=== PATIENT | male | born 1965 | race Caucasian/White ===

== ENCOUNTER 2023-11-05 07:30 | Outpatient (CLI) | payer OTHER, SELFPAY | END 2023-11-05 07:31 | disposition home or self-care (01) | PROVIDERS: PCP Internal Medicine; Visit Provider Internal Medicine | DX: Z12.5 Encounter for screening for malignant neoplasm of prostate (principal); Z13.6 Encounter for screening for cardiovascular disorders | CPT/HCPCS: 80061; G0103 ==

== ENCOUNTER 2024-04-26 08:15 | Outpatient (RCR) | payer MEDICAID, SELFPAY ==
--- NOTE | 2024-04-19 11:08 | OT.OPOE ---
OT Outpatient Ortho Eval OT Outpatient Ortho Eval* Start: 04/19/24 08:16 Freq: Status: Active Protocol: Document 04/19/24 08:16 ROGELIO (Rec: 04/19/24 10:55 URSULAAngeline [id number]) E-signed By Zohra Marcano, OTR/L, CLT OT OP Ortho Eval Details Complexity Complexity Low Insurance Information Insurance Information Medicaid,UCARE Outpatient History/Precautions Current Condition/Medical Diagnosis Referring Provider Dr. Zoran Anthony Medical Diagnoses Ulnar nerve entrapment ( bilateral) G56.20 - Lesion of ulnar nerve , unspecified upper limb (both the L and R UE) Treatment Diagnosis Paresthesia of skin R20.2 Pain in the R hand M79.641 Pain in the L hand M79.642 Weakness M62.81 (hand hook up strength bilaterally) Date of Onset Chronic, >1 year Other Conditions Ulnar nerve entrapment G56.20 - Lesion of ulnar nerve , unspecified upper limb (ICD- 10) CAD (coronary artery disease) I25.10 - Atherosclerotic heart disease of [place] coronary artery without angina pectoris (ICD-10) Numbness in both hands Medical/Functional History Medical History Reviewed Yes Prior Level of Function/Mobility Medications: aspirin (Adult Low Dose Aspirin) 81 mg PO QDAY atorvastatin 80 mg PO DAILY lisinopril 10 mg PO DAILY Social History Employment Status Retired Critical Job Demands Pull,Lift,Overhead Reach 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 Symptoms are present throughout the day and will wake him up in the middle of the night. He takes ibuprofen when it is really bad but not daily on a schedule, reports some relief from this. His symptoms are very much compatible with ulnar nerve entrapment syndrome bilaterally. No other complaints or concerns are noted. Patient saw his PCP for these symptoms on 03/08/24 and it was recommended that he try to sleep with his arm straight. In addition, he was given a course of prednisone 20 mg PO BID 10 tabs 0RF G56.20 - Lesion of ulnar nerve , unspecified upper limb. Patient states he had 2 days of relief from this but then after finishing the medication he didn't notice any difference. Pain Assessment Pain Pain Yes Pain Comments 3/10 tingling and numbness in the little finger and ring finger bilaterally R hand is worse (R hand dominant) Range of Motion and Strength Shoulder Range of Motion and Strength Shoulder Range of Motion and Strength Bilaterally the ROM of WNL with strength 5/5 Elbow/Forearm Range of Motion and Strength Elbow/Forearm Range of Motion and Bilaterally the ROM of WNL Strength with strength 5/5 Wrist Range of Motion and Strength Wrist Range of Motion and Strength Bilaterally the ROM of WNL with strength 5/5 Hand Pinch/Benzol Still Operator Strength Hand Pinch/Benzol Still Operator Strength Hand Pinch/Benzol Still Operator Strength Left Hand,Right Hand Left Hand Benzol Still Operator Strength Position 1 in Elbow 110 Flexion (lbs) Benzol Still Operator Strength Position 2 in Elbow 115 Extension (lbs) Lateral Pinch Strength (lbs) 30 Three Point Pinch (lbs) 21 Tip Pinch Strength (lbs) 16 Right Hand Benzol Still Operator Strength Position 1 in Elbow 103 Flexion (lbs) Benzol Still Operator Strength Position 2 in Elbow 105 Extension (lbs) Lateral Pinch Strength (lbs) 30 Three Point Pinch (lbs) 21 Tip Pinch Strength (lbs) 16 OT Problems Problems Problems Decreased Strength,Pain, Sensory Sensitivity,Lifting, Gripping,Pinching Other Problems Sleeping Patient Potential Good Assessment Assessment Assessment This is a very pleasant, R hand dominant 58-year-old retired male patient who presents to the clinic with a chief complaint of paresthesia on the ulnar side of both hands, involving the little and ring fingers as well as reports of worsening hook up strength in bilateral hands. Pain level is reported at a 3/ 10 consistently but more if he bumps his elbow or rests the elbow for long durations of time. Symptoms are worse if his elbow is bent >60 degrees and he has been trying to keep his arms straight/in extended positions as much as possible . Benzol Still Operator/pinch strengths are within the standard norms for his gender/age but this is a very active male who notices a difference in his hand strength when comparing against his personal baseline. Occupational Therapy Treatment Plan - OP Potential Rehabilitation Potential Good Barriers Barriers to goal attainment Patient's symptoms began >1 year ago (Chronic) with longstanding symptoms that irritate patient during the day and night, patient may not achieve a full recovery with conservative measures. Set Goals Goals Set with Patient Yes Goals Goals 1. Through activity participation in skilled therapy sessions, and consistency in performing a customized HEP, patient will improve capacity of tendons and muscles to manage load in order to have less pain with ADLs, work, leisure activities and IADLs. 2. Through use of a soft elbow brace and nighttime positioning changes for the dominant R UE, patient will report sleeping >3 hour durations for improved sleep quality. 3. Patient will report a 50% decrease in paresthesia of bilateral hands during daytime hours. Target Date 8 weeks Treatment Plan Treatment Plan Evaluation,Edema Control, Iontophoresis,Joint Mobilization,Manual Therapy, Ultrasound,Therapeutic Exercise,Therapeutic Activities,Self Care/Home Management,Education Expected Frequency 1-2x Week Expected Duration 8-10 Weeks Home Program Home Program Home Program Initiated Home Program Specifics Ulnar Nerve Glides and Flossing L and R forearm Stretching Gave patient a double taped tennis ball for self mobs/ massaging the forearm flexors (pronator teres is very tight in both the R and L forearm with R worse than the L). Certification Certification Statement I Certify That: Therapy Services Provided, Therapy Plan Established, Therapy Plan Reviewed Certification Information Clinic ID # [id number] Initial Certification Date 04/19/24 Recertification Due Date 07/18/24 Provider Signature Required Yes Provider Signature Shows Agreement With POC & Medical Necessity Physician NPI Number Write NPI# Here Physician Comment/Change Comment or Changes Physician Signature & Date Requested Please Sign/Date Here
== END 2024-08-24 23:59 | disposition home or self-care (01) ==
PROVIDERS: PCP Internal Medicine; Visit Provider Internal Medicine
DX: G56.20 Lesion of ulnar nerve, unspecified upper limb (principal); R20.2 Paresthesia of skin; M79.641 Pain in right hand; M79.642 Pain in left hand; M62.81 Muscle weakness (generalized); Z51.89 Encounter for other specified aftercare
CPT/HCPCS: 97110; 97140; 97165; X5282

== ENCOUNTER 2024-07-29 10:11 | Outpatient (CLI) | payer MEDICAID, SELFPAY | END 2024-07-29 10:12 | disposition home or self-care (01) | LOC: NFLDREF 10:13 | PROVIDERS: PCP Internal Medicine; Visit Provider Internal Medicine | DX: I10 Essential (primary) hypertension (principal); E78.5 Hyperlipidemia, unspecified | CPT/HCPCS: 84403 ==

== ENCOUNTER 2024-08-06 06:13 | Day surgery (SDC) | payer MEDICAID, SELFPAY ==
[2024-08-06] VITALS (9 sets, daily range): BP systolic 108–140; BP diastolic 68–85; PULSE 56–69; RESP 16; TEMP 36.2–36.7; O2SAT 95–99; BMI 27.2
[2024-08-06] MEDS: fentaNYL 100 MCG/2 ML inj IVP (06:24)
[2024-08-06] MEDS: MIDAZOLAM HCL 1 MG/ML inj IVP (06:24)
[2024-08-06] MEDS: SODIUM CHLORIDE 0.9 % (FLUSH) 10 ML SYRINGE IVF (07:03)
[2024-08-06] MEDS: LACTATED RINGERS 1000 ML 1,000 ML 100 ML IV (07:03)
--- NOTE | 2024-08-06 07:24 | P.ORPRC_ITS ---
Procedure Note Date of procedure: 08/06/24 Procedure: PREOPERATIVE DIAGNOSIS: 1. Right cubital tunnel syndrome POSTOPERATIVE DIAGNOSIS: 1. Right cubital tunnel syndrome PROCEDURE: 1. Right ulnar nerve decompression and subcutaneous anterior transposition SURGEON: Domo Almeida MD. SCALING MACHINE OPERATOR: Kacey Arroyo P.A.-C. An certified ophthalmic assistant was critical for this case to aid in patient positioning, tissue retraction, limb manipulation/positioning, and closure. ANESTHESIA: Regional block with monitored anesthesia care ESTIMATED BLOOD LOSS: 5 mL TOURNIQUET: 43 min at 250 mmHg COMPLICATIONS: None FINDINGS: After full decompression, the ulnar nerve was noted to sublux over the medial epicondyle with elbow flexion. After anterior transposition, with full elbow range of motion, there were no additional sites of compression. INDICATIONS: The patient is a pleasant 58-year-old male with history of numbness and tingling in the ulnar nerve distribution of his right hand. Electrodiagnostic studies were consistent with cubital tunnel syndrome. Symptoms were not improving with conservative treatment, and patient elected to proceed with surgical intervention consisting of right ulnar nerve decompression. Prior to surgery, the risks and benefits of the procedure were discussed with patient, all questions were answered, and informed consent was obtained. DESCRIPTION OF PROCEDURE: Patient was seen preoperatively and operative site was marked. A regional nerve block was performed by anesthesia staff. Patient was then brought to the operating room and placed in the supine position on the OR table. Monitored anesthesia care was provided by anesthesia staff. A tourniquet was placed on the patient's operative arm and the operative extremity was prepped and draped in usual sterile fashion. A surgical time-out was performed confirming patient name, surgical procedure, and surgical site. The operative extremity was elevated and exsanguinated with an Esmarch, and the tourniquet was inflated to 250 mmHg. A longitudinal incision was made measuring approximately 8 cm along course of the ulnar nerve centered between the medial epicondyle and the olecranon. Incision was carried bluntly through the subcutaneous tissues. Care was taken to avoid injury to crossing cutaneous nerves. The ulnar nerve was identified proximally and followed to where it pierced the intermuscular septum. Fascial band between the medial triceps the medial intermuscular septum was released. The nerve dissection was then continued distally and cubital tunnel was released with care taken to protect the underlying ulnar nerve. The nerve was then tracked distally, and in the sup erficial and deep fascia of the FCU was released. The nerve was then gently palpated to confirm there were no persistent areas of constriction. The elbow was put through full range of motion, and the ulnar nerve was noted to sublux over the medial epicondyle, so decision was made to proceed with anterior transposition. The plane between the subcutaneous fat and deep fascia was developed anterior to the medial epicondyle. The ulnar nerve was then transposed anterior to the medial epicondyle. A band of fascia from the flexor pronator mass was released distally leaving the attachment to the medial condyle. This fascial band was then sutured to the subcutaneous tissues posterior to the ulnar nerve using 0 Vicryl [id number] interrupted sutures creating a sling to prevent posterior translation of the ulnar nerve. The elbow was then placed through full range of motion and no additional sites of compression were noted. The the elbow wound was then irrigated with normal saline, and the tourniquet was released. Total tourniquet time was 43 minutes. Hemostasis was achieved with bipolar electrocautery. The elbow incision was closed with 2-0 Vicryl inverted subcutaneous stitches followed by subcuticular 3-0 Stratafix, 4-0 Monocryl, and Dermabond. Sterile dressings and long-arm splint were applied. Patient was then transferred to the recovery room in stable condition. POSTOPERATIVE PLAN: 1. Patient will be discharged to home day of surgery. 2. Ice and elevation as needed for pain and swelling. 3. Tylenol and/or ibuprofen as needed for pain. 4. Keep splint clean and dry. 5. Return to the orthopedic clinic for follow-up evaluation in 1-2 weeks for splint removal and wound check.
--- NOTE | 2024-08-06 07:24 | W.PM.H&PU ---
History & Physical Update History & Physical Update H&P Reviewed and patient assessed: No changes noted
[2024-08-06] MEDS: CEFAZOLIN 2 GM INJ IVP (07:40)
--- NOTE | 2024-08-06 08:00 | SUR.PREOP ---
TIME?OUT:?0723 PT/RN/MDA?VERIFICATION?OF?SURGICAL?SITE right arm,?PROCEDURE Nerve Block,?AND?CONSENT OBTAINED?PRIOR?TO?INVASIVE?PROCEDURE.
--- NOTE | 2024-08-06 08:18 | P.NB_ITS ---
Nerve Block Nerve Block Time Seen by Provider: 07:28 Date Seen: 08/06/24 Type of block requested by surgeon for post-operative analgesia: axillary Side: right Time out performed: Yes Verification of patient name: Yes Verification of date of : Yes Site marking: site marked Name of person performing procedure: Issac Continuous monitoring Was continuous monitoring of O2 sat, B/P, teletypesetter monitor, recorded every 15 minutes?: Yes Procedure Checklist: sterile prep, needles and gloves Ultrasound guided. Images saved: Yes Medications given in 5ml increments after negative aspiration: Ropivicaine %: 0.5 mL: 10 Needle gauge: 22 and Lidocaine %: 2 mL: 20 Patient tolerated procedure well: Yes Additional comments: Needle noted adjacent to nerve Block Charges Block Charge (with Pro Fee): Brachial Plexus Use of Ultrasound Machine for Block: Yes- US Guidance/pain block
--- NOTE | 2024-08-06 08:19 | W.ANESCHARGE ---
Anesthesia Charges Start Date/Time Anesthesia Start Date: 08/06/24 Anesthesia Start Time: 07:35 Stop Date/Time Anesthesia Stop Date: 08/06/24 Anesthesia Stop Time: 09:37
--- NOTE | 2024-08-06 09:40 | W.ANESCHARGE ---
Anesthesia Charges Start Date/Time Anesthesia Start Date: 08/06/24 Anesthesia Start Time: 07:35 Stop Date/Time Anesthesia Stop Date: 08/06/24 Anesthesia Stop Time: 09:37
[2024-08-06] MEDS: LACTATED RINGERS 1000 ML 1,000 ML 50 ML IV (09:47)
== END 2024-08-06 11:05 | disposition home or self-care (01) ==
PROVIDERS: PCP Internal Medicine; Visit Provider Orthopaedic Surgery
PROC: (CPT 64718; principal; 2024-08-06 07:30)
DX: G56.21 Lesion of ulnar nerve, right upper limb (principal); G89.18 Other acute postprocedural pain
CPT/HCPCS: 64718; 01710; 64415; 76942; J0690; J1100; J2250; J2405; J2704; J2795; J3010; J3490; J7120

== ENCOUNTER 2024-10-05 09:30 | Outpatient (RCR) | payer MEDICAID, SELFPAY ==
--- NOTE | 2024-09-22 18:24 | OT.OPOE ---
OT Outpatient Ortho Eval OT Outpatient Ortho Eval* Start: 09/22/24 07:18 Freq: Status: Active Protocol: Document 09/22/24 07:19 AMB (Rec: 09/22/24 18:19 AMB [id number]) E-signed By Virginie Maradiaga, OTR/L, CLT, UNDERCOATER OT OP Ortho Eval Details Complexity Complexity Low Insurance Information Insurance Information Medicaid,UCARE Insurance Information Comments Cert due: 12/21/24 Outpatient History/Precautions Current Condition/Medical Diagnosis Referring Provider Dr Almeida Medical Diagnoses Z98.89 Decompression of ulnar nerve Treatment Diagnosis M25.621 Stiffness RUE elbow R53.1 Weakness RUE elbow Date of Onset DOS: 08/06/24 Precautions Lifting Restrictions Medical Conditions Heart Condition,Pacemaker, Metal Implants Other Conditions PMH (copied from medical chart ): document embedded image [facility] 1980 [address], [place] [address] Office Visit Patient: Los Rodas MR#: [id number] : 1965 Acct:[id number] Loc: ORTHFBO Provider: Efra Almeida cc: ~ Visit Date 08/03/24 HPI HPI Comments Details: CHIEF COMPLAINT: Bilateral hand numbness and tingling HISTORY: Los is a 58-year-old right- hand-dominant male presents for follow-up evaluation of bilateral, right worse than left, hand numbness, tingling, and pain. He localizes symptoms to his small fingers, ring fingers, and ulnar aspects of his hands. Symptoms have been present for almost 2 years, and he is now experiencing constant numbness and tingling with mild discomfort. Symptoms are aggravated by bending his elbows and resting his elbows on arm rests. He often experiences worse symptoms at night. Treatment as consisted of course of prednisone last months which did little to alleviate his symptoms. He has also tried physical therapy without significant improvement in his symptoms. EXAMINATION: General: Patient is alert and oriented and in no apparent distress. Musculoskeletal: Both upper extremities were examined. No thenar or hypothenar atrophy. Full elbow range of motion without pain. No subluxation of the ulnar nerves. Tinel's over the carpal tunnel and cubital tunnel was negative bilaterally. Carpal tunnel compression test was negative bilaterally. There was intact but decreased sensation in the ulnar nerve distribution of in both hands, right worse than left. Radial and median sensation was intact to light touch bilaterally. 5/5 strength bilateral thumb extension, thumb opposition, thumb IP flexion, and intrinsics. Fingers warm and well perfused. ELECTRODIAGNOSTIC STUDIES: EMG and nerve conduction studies performed 07/26/2024 at [facility] were reviewed . These studies showed electrodiagnostic evidence for mild to moderate ulnar neuropathy at the elbows bilaterally. There is also electrodiagnostic evidence for mild bilateral median neuropathies consistent with mild carpal tunnel syndrome bilaterally. Assessment & Plan Assessment & Plan (1) Cubital tunnel syndrome, bilateral: Problem Comment: Right more symptomatic than left Plan: History, physical exam, and electrodiagnostic studies consistent with mild to moderate bilateral, right worse than left, cubital tunnel syndrome. Discussed diagnosis and conservative as well as surgical treatment options. Symptoms have not improved with conservative treatment. At this point he would likely benefit from surgery to decompress the affected ulnar nerves. After discussion, patient has elected to proceed with surgery consisting of right ulnar nerve decompression with possible ulnar nerve transposition. Risks of surgery to include but not limited to infection, neurovascular injury, persistent numbness and tingling, and adam-incisional pain were discussed with patient today and all questions were answered. We will schedule surgery at patient's convenience. Prior to surgery he will need sees primary care provider for preop evaluation. Once he recovers from right ulnar nerve decompression, he may benefit from similar surgery on the left. (2) Carpal tunnel syndrome, bilateral: Problem Comment: Currently asymptomatic Plan: Electrodiagnostic studies revealed mild bilateral carpal tunnel syndrome, but currently, he has no symptoms consistent with carpal tunnel syndrome. At this point recommend observation. If he does develop symptoms he may benefit from conservative treatment consisting of bracing, NSAIDs, activity modifications. Plan Detail Time Spent: Please review Coding section regarding the total time spent today in the care of this patient, separate from any independently billable service . Care includes but is not limited to a medically appropriate evaluation and the documentation of the care in the health record. Vital Signs 08/03/24 10:37 Height 176.53 cm Weight 82.1 kg BMI 26.3 Temp 97.7 F Temp Source Temporal Artery Scan Intake Intake BMI [18 - 64 (<18.5 or >25)] [ 65& Older (<23 or >30) BMI screening not done: No Visit Reasons: B Arm EMG [facility] 07-26 Nurse's Note: He continues to be active despite his bilateral hand pain, R>L. he states the right hand feeling like it is always in boiling water. the left hand will get worse with full elbow flexion. Are you having pain: Yes Allergies No Known Drug Allergies Allergy (Verified 08/03/24 10: 39) Home Medications - Last Reconciled 08/03/24 by Silvia Carrera ~ LAT ATC aspirin (Adult Low Dose Aspirin) 81 mg PO QDAY atorvastatin 80 mg PO DAILY lisinopril 10 mg PO DAILY Referred by:: Zoran Anthony MD Functional & Cognitive Status Patient needs assist w/ADL's: No Patient appears alert: Yes Tobacco Measurement Smoking Status: Never smoker Electronic Cigarettes (Vaping) Vaping Status: Never vaped [facility] Active Problems (Updated 08/03 @ 11:07 by Efra Almeida MD) Carpal tunnel syndrome, bilateral (Acute) Currently asymptomatic G56.03 - Carpal tunnel syndrome, bilateral upper limbs (ICD-10) Cubital tunnel syndrome, bilateral (Acute) Right more symptomatic than left G56.23 - Lesion of ulnar nerve , bilateral upper limbs (ICD- 10) Hypertension (Acute) I10 - Essential (primary) hypertension (ICD-10) Hyperlipidemia (Acute) E78.5 - Hyperlipidemia, unspecified (ICD-10) Ulnar nerve entrapment (Acute) G56.20 - Lesion of ulnar nerve , unspecified upper limb (ICD- 10) CAD (coronary artery disease) (Acute) I25.10 - Atherosclerotic heart disease of [place] coronary artery without angina pectoris (ICD-10) Medical History (Updated 08/03 @ 11:07 by Efra Almeida MD) Hypertension I10 - Essential (primary) hypertension (ICD-10) Ulnar nerve entrapment G56.20 - Lesion of ulnar nerve , unspecified upper limb (ICD- 10) CAD (coronary artery disease) I25.10 - Atherosclerotic heart disease of [place] coronary artery without angina pectoris (ICD-10) Medical/Functional History Medical History Reviewed Yes Prior Level of Function/Mobility Pt has had paresthesia in his right UE for 3-4 years, also has hx of CTS which has been asymptomatic recently. Social History Employment Status Unemployed Hobbies Pt does a lot of work around his home, cuts wood, likes to baron Ortho Subjective Subjective Subjective Pt stats he has been having problems with numbness in his RUE for at least 3-4 years, also has issues with the LUE. Pt has hx of CTS but states this has not been an issue recently. Pt states that since surgery he has had no change in his symptoms, his elbow is actually more sore than it was . Pt rates his average pain in the elbow at 8/10 and states his pinky and ring fingers on his right hand are still numb. Goniometric Comments Goniometric Comments Goniometric Comments 09/22/24 Pt demonstrates full, pain-free AROM of the RUE shoulder, wrist and hand. AROM of the RUE elbow is -14- 135 AROM of the RUE forearm pronation is 70, supination is 70. Hand Pinch/Boiler Mechanic Strength Hand Pinch/Boiler Mechanic Strength Hand Pinch/Boiler Mechanic Strength Left Hand,Right Hand Left Hand Boiler Mechanic Strength Position 1 in Elbow 88 Flexion (lbs) Boiler Mechanic Strength Position 2 in Elbow 110 Extension (lbs) Lateral Pinch Strength (lbs) 30 Three Point Pinch (lbs) 24 Right Hand Boiler Mechanic Strength Position 1 in Elbow 105 Flexion (lbs) Boiler Mechanic Strength Position 2 in Elbow 110 Extension (lbs) Lateral Pinch Strength (lbs) 29 Three Point Pinch (lbs) 24 Comments Comments 09/22/24 Mild discomfort with molding associate strength testing in position RUE. MMT of RUE biceps 4-/5, triceps 3-/5, pro and sup 4/5. OT Objective Data Skin/Wounds/Edema Comments 09/22/24 Incisional area on the RUE posterior elbow is well healed, no s/s of infection. Sensation Sensation Assessment Summary Comments 09/22/24 Numbness in RUE 4-5th digits. OT Problems Problems Problems Decreased Strength,Decreased Range of Motion,Decreased Dexterity,Pain,Decreased Coordination,Sensory Sensitivity,Lifting,Gripping, Pinching Other Problems Writing,Opening Containers, Computer,Fasteners,Sleeping Patient Potential Good Assessment Assessment Assessment Pt is a very pleasant and active 59yo referred to OT to address RUE pain, weakness, limited AROM and sensory deficits following UN transposition. Pt will benefit from skilled OT interventino to address deficits and restore full ROM And strength throughout RUE as well as to promote healing of UN to restore sensory function in the RUE 4-5th digits. Occupational Therapy Treatment Plan - OP Potential Rehabilitation Potential Good Set Goals Goals Set with Patient Yes Goals Goals 1. Pt will be independent and compliant with HEP in order to resume full, pain-free use of the involved UE. 3 weeks 2. Pt will demonstrate full, pain-free AROM of the involved UE in order to improve ability to grasp and hold. 6 weeks 3. Pt will demonstrate pain- free molding associate and pinch strength comparable to the uninvolved side in order to improve functional grasp, hold, reach, and lifting ability needed to complete self-care, leisure tasks, and work activities. 8 weeks. Treatment Plan Treatment Plan Evaluation,Edema Control,Joint Mobilization,Manual Therapy, Ultrasound,Wound Care/Scar Management,Therapeutic Exercise,Therapeutic Activities,Self Care/Home Management,Education Expected Frequency 1-2x Week Expected Duration 8-10 Weeks Home Program Home Program Home Program Initiated Home Program Specifics 09/22/24 Provided training and practice in HEP for AROM of RUE elbow flex, ext, forearm pro/sup, wirst flex/ext and circumduction. Also initiated compression with gel pad for scar and edema reduction. Certification Certification Statement I Certify That: Therapy Services Provided, Therapy Plan Established, Therapy Plan Reviewed Certification Information Clinic ID # [id number] Initial Certification Date 09/22/24 Recertification Due Date 12/21/24 Provider Signature Required Yes Provider Signature Shows Agreement With POC & Medical Necessity Physician NPI Number Write NPI# Here Physician Comment/Change Comment or Changes Physician Signature & Date Requested Please Sign/Date Here
== END 2025-01-06 09:22 | disposition home or self-care (01) ==
PROVIDERS: PCP Internal Medicine; Visit Provider Orthopaedic Surgery
DX: Z98.890 Other specified postprocedural states (principal); M25.621 Stiffness of right elbow, not elsewhere classified; R53.1 Weakness; Z51.89 Encounter for other specified aftercare
CPT/HCPCS: 97035; 97140; 97165

== ENCOUNTER 2025-03-25 07:25 | Outpatient (CLI) | payer MEDICAID, SELFPAY | END 2025-03-25 07:26 | disposition home or self-care (01) | LOC: NFLDREF 03-31 10:58 | PROVIDERS: PCP Internal Medicine; Referring Provider Internal Medicine; Visit Provider Internal Medicine | DX: E78.5 Hyperlipidemia, unspecified (principal); I10 Essential (primary) hypertension; Z12.5 Encounter for screening for malignant neoplasm of prostate | CPT/HCPCS: 80053; 80061; G0103 ==